=== PATIENT | female | born 1955 | race Caucasian/White ===

== ENCOUNTER 2017-05-18 15:43 | Outpatient (CLI) | payer SELFPAY | END 2017-05-18 19:45 | disposition home or self-care (01) | LOC: SMA 15:43 | DX: Z12.31 Encounter for screening mammogram for malignant neoplasm of breast (principal) | CPT/HCPCS: G0202 ==

== ENCOUNTER 2018-05-25 13:10 | Outpatient (CLI) | payer SELFPAY | END 2018-05-25 21:14 | disposition home or self-care (01) | LOC: SMA 13:10 | PROVIDERS: ATTEND Family Medicine | DX: Z12.31 Encounter for screening mammogram for malignant neoplasm of breast (principal) | CPT/HCPCS: 77067 ==

== ENCOUNTER 2019-05-16 15:09 | Outpatient (CLI) | payer SELFPAY | END 2019-05-16 19:59 | disposition home or self-care (01) | LOC: SMA 15:09 | PROVIDERS: ATTEND Family Medicine | DX: Z12.31 Encounter for screening mammogram for malignant neoplasm of breast (principal) | CPT/HCPCS: 77067 ==